=== PATIENT | female | born 1970 | race Caucasian/White ===

== ENCOUNTER → 2018-08-26 | Outpatient (CLI) | payer OTHER | END | disposition home or self-care (01) | LOC: CFH 09:58 | PROVIDERS: ATTEND Internal Medicine Cardiovascular Disease | DX: R07.89 Other chest pain (principal); I10 Essential (primary) hypertension; E78.5 Hyperlipidemia, unspecified; Z82.49 Family history of ischemic heart disease and other diseases of the circulatory system | CPT/HCPCS: 93306 ==

== ENCOUNTER 2019-08-01 14:06 | Outpatient (CLI) | payer OTHER ==
[2019-08-01] MEDS ORDERED: EZET10TA70 PO (14:54)
[2019-08-01] MEDS ORDERED: magnesium PO (14:54)
[2019-08-01] MEDS ORDERED: multivitamin PO (14:54)
[2019-08-01] MEDS ORDERED: VENL75CA PO (14:54)
[2019-08-01] MEDS ORDERED: fish oil PO (14:54)
[2019-08-01] MEDS ORDERED: Niacin PO (14:54)
[2019-08-01] MEDS ORDERED: tiazac PO (14:54)
[2019-08-01] MEDS ORDERED: LEVO5TAB29 PO (14:54)
[2019-08-01] MEDS ORDERED: ROSU40TA PO (14:54)
[2019-08-01] MEDS ORDERED: flonase PO (14:54)
== END 2019-08-01 23:59 | disposition home or self-care (01) ==
LOC: STAR 14:06
PROVIDERS: ATTEND Obstetrics & Gynecology Female Pelvic Medicine and Reconstructive Surgery
DX: Z02.9 Encounter for administrative examinations, unspecified (principal)

== ENCOUNTER 2019-08-25 08:17 | Day surgery (SDC) | payer OTHER ==
[~2019-08-25] VITALS: Ht 175.3 cm; Wt 98.0 kg
[~2019-08-25 08:17] MED LIST: CEFAZOLIN 1,000 MG ONE; DEXAMETHASONE 4 MG/ML, 1ML ONE; EZET10TA70 PO; FENTANYL PF 250 MCG/5ML ONE; GLYCOPYRROLATE 0.2MG/1ML, 5ML ONE; KETOROLAC 30 MG/1 ML ONE; LEVO5TAB29 PO; MIDAZOLAM 1 MG/ML, 2ML ONE; NEOSTIGMINE 1 MG/ML, 10ML ONE; Niacin PO; ONDANSETRON 2MG/ML, 2ML ONE; PROPOFOL 10 MG/ML, 20ML ONE; ROCURONIUM 10MG/ML,5ML ONE; ROSU40TA PO; VENL75CA PO; fish oil PO; flonase PO; magnesium PO; multivitamin PO; tiazac PO
[2019-08-25] MEDS ORDERED: LACTATED RINGERS 1,000 ML IV SCH ×2 (08:34→11:41)
[2019-08-25] MEDS ORDERED: SCOPOLAMINE PATCH, 1.5MG PATCH.TD72 TD ONE (09:00)
[2019-08-25] MEDS ORDERED: GABAPENTIN 300 MG CAPSULE PO ONE (09:00)
[2019-08-25] MEDS ORDERED: ACETAMINOPHEN 500 MG TABLET PO ONE (09:00)
[2019-08-25 09:14] LABS: HCG UR SG 1.019 (1.003-1.030)
[2019-08-25] MEDS ORDERED: INDIGO CARMINE 0.8%, 5ML ONE (09:49)
[2019-08-25] MEDS ORDERED: BUPIVACAINE/PF-EPI 0.25% 1:200K ONE (09:49)
[2019-08-25] MEDS ORDERED: MORPHINE SULFATE 4 MG/ML, 1ML IVPush PRN (10:00)
[2019-08-25] MEDS ORDERED: FENTANYL PF 100 MCG/2ML IV PRN (10:00)
[2019-08-25] MEDS ORDERED: HALOPERIDOL 5 MG/ML IV PRN (10:00)
[2019-08-25] MEDS ORDERED: MEPERIDINE/PF 25MG/ML,1ML IVPush PRN (10:00)
[2019-08-25] MEDS ORDERED: LABETALOL 5MG/ML, 20ML IV PRN (10:00)
[2019-08-25] MEDS ORDERED: OXYcodone 5 MG/5 ML ORAL.SOL UDC PO PRN (10:00)
[2019-08-25] MEDS ORDERED: HYDROmorphone 2 MG/ML, 1ML IVPush PRN (10:00)
[2019-08-25] MEDS ORDERED: hydrALAzine 20 MG/ML, 1ML IV PRN (10:00)
[2019-08-25] MEDS ORDERED: PROMETHAZINE 25 MG/ML, 1ML IV PRN (10:00)
[2019-08-25] MEDS ORDERED: FENTANYL PF 250 MCG/5ML ONE (10:33)
[2019-08-25] MEDS ORDERED: FENTANYL PF 100 MCG/2ML ONE ×3 (11:04→12:15)
[2019-08-25] MEDS ORDERED: FUROSEMIDE 20 MG/2 ML ONE (11:24)
[2019-08-25] MEDS ORDERED: ONDANSETRON 2MG/ML, 2ML IVPush PRN (12:00)
[2019-08-25] MEDS ORDERED: HYDROcodone/APAP 5/325 TABLET PO PRN (12:00)
[2019-08-25] MEDS ORDERED: PROMETHAZINE 25 MG SUPP PR ONE (12:00)
[2019-08-25] MEDS ORDERED: IBUPROFEN 600 MG TABLET PO PRN (12:00)
[2019-08-25] MEDS ORDERED: OXYcodone 5 MG/5 ML ORAL.SOL UDC ONE (12:15)
== END 2019-08-25 15:35 | disposition home or self-care (01) ==
LOC: OUT 08:17
PROVIDERS: ATTEND Obstetrics & Gynecology Female Pelvic Medicine and Reconstructive Surgery
DX: N85.2 Hypertrophy of uterus (principal); N83.8 Other noninflammatory disorders of ovary, fallopian tube and broad ligament; D64.9 Anemia, unspecified; G43.909 Migraine, unspecified, not intractable, without status migrainosus; F32.9 Major depressive disorder, single episode, unspecified; F41.9 Anxiety disorder, unspecified; E78.5 Hyperlipidemia, unspecified; Z98.890 Other specified postprocedural states; Z91.040 Latex allergy status
CPT/HCPCS: 58552; 81025; 88307; J0690; J1100; J1885; J1940; J2250; J2405; J2704; J2710; J3010; J7120

== ENCOUNTER → 2020-11-23 | Outpatient (CLI) | payer OTHER ==
[~2020-11-23] MED LIST changes: -CEFAZOLIN 1,000 MG ONE; -DEXAMETHASONE 4 MG/ML, 1ML ONE; -FENTANYL PF 250 MCG/5ML ONE; -GLYCOPYRROLATE 0.2MG/1ML, 5ML ONE; -KETOROLAC 30 MG/1 ML ONE; -MIDAZOLAM 1 MG/ML, 2ML ONE; -NEOSTIGMINE 1 MG/ML, 10ML ONE; -ONDANSETRON 2MG/ML, 2ML ONE; -PROPOFOL 10 MG/ML, 20ML ONE; -ROCURONIUM 10MG/ML,5ML ONE
== END | disposition home or self-care (01) ==
LOC: CFH 13:13
PROVIDERS: ATTEND Nurse Practitioner Family
DX: N60.02 Solitary cyst of left breast (principal); N64.4 Mastodynia; N63.20 Unspecified lump in the left breast, unspecified quadrant
CPT/HCPCS: 76642; 77061; 77065; G0279

== ENCOUNTER 2020-12-03 08:35 | Outpatient (CLI) | payer OTHER ==
[2020-12-03] MEDS ORDERED: LIDOCAINE 1%, 20ML ONE (09:00)
== END 2020-12-03 23:59 | disposition home or self-care (01) ==
LOC: CFH 08:35
PROVIDERS: ATTEND Nurse Practitioner Family
DX: N60.02 Solitary cyst of left breast (principal)
CPT/HCPCS: 19000; 76942; J3490